=== PATIENT | male | born 1945 | race Caucasian/White ===

== ENCOUNTER 2020-01-31 00:28 | Emergency (ER) | payer OTHER ==
[~2020-01-31] VITALS: Ht 182.9 cm; Wt 115.9 kg
[~2020-01-31 00:28] MED LIST: BENAZEPRIL PO; CARV-39 PO; CEFD300C37 PO; DOXEPIN PO; DOXY100C2 PO; OXYC5CAP2 PO; SPIR25TA5 PO
--- NOTE | 2020-01-31 00:32 | NUR ---
74/M. Arrived via EMS. Constipation x6 days. Taking laxative at home. No success. Pt taking percocets at home for toe that needs amputated. Pt has been taking percocets for 15 years. Has had constipation in the past. Given a "pill" last time and it helped him have a BM. Complaints of lower abdominal pain. VS stable.
[2020-01-31] MEDS ORDERED: METHYLNALTREXONE 12 MG/0.6 ML SYR SQ ONE (00:48)
[2020-01-31 01:20] LABS: BASOPHILS # (AUTO) 0.11 x10^3/uL (0-0.1); BASOPHILS % (AUTO) 1 % (0-1); EOSINOPHILS # (AUTO) 0.18 x10^3/uL (0-0.4); EOSINOPHILS % (AUTO) 1 % (1-7); LYMPHOCYTES # (AUTO) 2.24 x10^3/uL (1-3.4); LYMPHOCYTES % (AUTO) 15 % (22-44); MD NO; MEAN CORPUSCULAR HEMOGLOBIN 32.2 pg (27.5-34.5); MEAN CORPUSCULAR HGB CONC 32.9 g/dL (33.2-36.2); MEAN PLATELET VOLUME 6.7 fL (7.4-10.4); MONOCYTES % (AUTO) 5 % (2-9); NEUTROPHILS # (AUTO) 11.62 x10^3/uL (1.8-6.8); NEUTROPHILS % (AUTO) 78 % (42-75); PLATELET COUNT 287 x10^3/uL (130-400); RED BLOOD COUNT 4.14 x10^6/uL (4.38-5.82); RED CELL DISTRIBUTION WIDTH 13.8 % (9.4-14.8)
[2020-01-31] MEDS: METHYLNALTREXONE 12 MG/0.6 ML SYR SQ ONE ×2 (01:22→01:24)
[2020-01-31 01:30] LABS: ALANINE AMINOTRANSFERASE 15 U/L (12-78); ALBUMIN 3.4 g/dL (3.4-5.0); ANION GAP 7 mmol/L (5-15); CHLORIDE 105 mmol/L (98-107); CREATININE 1.56 mg/dL (0.7-1.3)
[2020-01-31 01:32] LABS: ALKALINE PHOSPHATASE 101 U/L (45-117); BILIRUBIN,TOTAL 0.3 mg/dL (0.2-1.0); TOTAL PROTEIN 7.4 g/dL (6.4-8.2)
[2020-01-31] MEDS ORDERED: POLYETHYLENE GLYCOL 17 GM PACKET ONE (02:00)
[2020-01-31] MEDS ORDERED: POLYETHYLENE GLYCOL 17 GM PACKET NG ONE (02:00)
[2020-01-31] MEDS ORDERED: PINK LADY ENEMA 490 ML BOTTLE PR ONE (03:00)
[2020-01-31] MEDS ORDERED: ONDANSETRON ODT 4 MG ONE (03:52)
[2020-01-31 03:56] VITALS: BP 100/52
--- NOTE | 2020-01-31 03:59 | NUR ---
TASK RN: pt assisted from bedside commode to bed after having liquid bowel movement, pt reports nausea, provider aware, pt medicated per mar. pt appears pale to this rn after transfer to [facility] from commode. pt NAD, FCS mild SOB per baseline. WCTM.
[2020-01-31] MEDS ORDERED: ONDANSETRON ODT 4 MG PO ONE (04:00)
--- NOTE | 2020-01-31 04:15 | NUR ---
Pt complaining of inability to urinate and wanting to be catheterized. Wanting to discuss with MD. RN bladder scanned pt, urine amt <30mL. MD notified.
--- NOTE | 2020-01-31 05:25 | NUR ---
Pt D/C'd around 0500. RN gave pt time to have another BM. Pt ambulatory, but requesting a wheelchair at discharge. Taxi vouchure given to pt to ensure ride home.
[2020-02-01] MEDS ORDERED: OXYC-302 PO (17:27)
== END 2020-01-31 05:28 | disposition home or self-care (01) ==
LOC: ED 01:32
DX: K59.00 Constipation, unspecified (principal); R10.84 Generalized abdominal pain; I10 Essential (primary) hypertension
CPT/HCPCS: 36415; 74022; 80053; 83690; 85025; 96372; 99283; Q0162

== ENCOUNTER 2020-02-01 14:19 | Inpatient (IN) | payer OTHER ==
[~2020-02-01] VITALS: Ht 182.9 cm; Wt 125.5 kg
--- NOTE | 2020-02-01 14:25 | NUR ---
BIB [facility] FOR EVALUATION OF R SECOND TOE WOUND. ONSET ONE WEEK AGO. EMS CALLED BY HOME HEALTH RN. HX OF TOE AMPUTATION BUT DENIES DM, PVD, OR HX OF MRSA. OPEN SUPERFICIAL WOUND TO R SECOND TOE; ERYTHEMA AND DECREASED DISTAL CAP REFILL. DENIES FEVER/N/V/ NEW INJURY/TRAUMA. BP/SPO2 MONITORING IN PLACE.
[2020-02-01] MEDS ORDERED: CEFAZOLIN PMX 1GM/50ML 50 ML IV ONE (15:00)
[2020-02-01] MEDS ORDERED: CEFAZOLIN PMX 1GM/50ML 50 ML ONE (15:00)
[2020-02-01] MEDS ORDERED: SODIUM CHLORIDE FLUSH 10ML SYR IVF ONE (15:00)
--- NOTE | 2020-02-01 15:04 | NUR ---
ABX INITIATED. NO BC PER ERP.
[2020-02-01 15:25] LABS: HCT (SEDRATE) 39.6 % (39.2-51.8)
[2020-02-01 15:33] LABS: MEAN CORPUSCULAR HEMOGLOBIN 32.4 pg (27.5-34.5); MEAN PLATELET VOLUME 6.7 fL (7.4-10.4); PLATELET COUNT 348 x10^3/uL (130-400); RED BLOOD COUNT 4.01 x10^6/uL (4.38-5.82); RED CELL DISTRIBUTION WIDTH 13.9 % (9.4-14.8)
[2020-02-01 15:35] LABS: ALBUMIN 3.6 g/dL (3.4-5.0); ANION GAP 4 mmol/L (5-15); CALCIUM 8.7 mg/dL (8.5-10.1); CHLORIDE 100 mmol/L (98-107)
[2020-02-01 15:36] LABS: MD YES
--- NOTE | 2020-02-01 16:04 | NUR ---
ABX FINISHED. NO S/S OF ABX RXN. POC IS ADMIT. PT AWARE AND DEMONSTRATES UNDERSTANDING. PT INCONTINENT OF URINE. PT CLEANED, CLEAN SHEETS PLACED. CLEAN HOSPITAL GOWN. ALL BELONGINGS IN PT BELONGINGS BAG AND LABELED. AWAITING ADMIT
[2020-02-01 16:50] LABS: BAND#(MANUAL) 0.17 x10^3/uL; BANDS%(MANUAL) 1 % (0-7); LYMPH#(MANUAL) 2.21 x10^3/uL (1-3.4); LYMPHS% (MANUAL) 13 % (22-44); MONOS#(MANUAL) 1.02 x10^3/uL (0.3-2.7); MONOS% (MANUAL) 6 % (2-9); SEGS% (MANUAL) 80 % (42-75)
[2020-02-01 16:51] LABS: <PLATELET ESTIMATE> ADEQUATE; <PLT MORPHOLOGY> NORMAL PLT MORPH; <RBC MORPHOLOGY> NORMAL
[2020-02-01] MEDS ORDERED: SODIUM CHLORIDE FLUSH 10ML SYR IVF PRN (17:00)
--- NOTE | 2020-02-01 17:26 | NUR ---
PT TO RESTROOM VIA WHEELCHAIR. TRANSPORTED SELF FROM [facility] TO WHEELCHAIR WO DIFFICULTY
[2020-02-01] MEDS ORDERED: OXYC-302 PO (17:27)
--- NOTE | 2020-02-01 17:53 | NUR ---
PATIENT HAS BEEN DELINED BY [facility]IST.
--- NOTE | 2020-02-01 17:55 | NUR ---
REPORT TO ROSY LOGAN. PT PREPARED FOR TRANSPORT
[2020-02-01] MEDS ORDERED: ACETAMINOPHEN 325 MG TABLET PO PRN (18:00)
[2020-02-01] MEDS ORDERED: LABETALOL 5MG/ML, 20ML IVPush PRN (18:00)
[2020-02-01] MEDS ORDERED: ONDANSETRON 2MG/ML, 2ML IVPush PRN (18:00)
[2020-02-01] MEDS ORDERED: VANCOMYCIN PER PHARMACY MC PRN (18:00)
[2020-02-01] MEDS ORDERED: POLYETHYLENE GLYCOL 17 GM PACKET PO PRN (18:00)
[2020-02-01] MEDS ORDERED: HEPARIN 5,000 UNITS/ML, 1ML SQ SCH (18:00)
[2020-02-01] MEDS ORDERED: ONDANSETRON ODT 4 MG PO PRN (18:00)
[2020-02-01 19:19] VITALS: BP 115/70
[2020-02-01] MEDS ORDERED: PHARMACOKINETIC CONSULTATION MC ONE (19:30)
[2020-02-01] MEDS ORDERED: PHARMACOKINETIC MONITORING MC PRN (19:30)
[2020-02-01] MEDS ORDERED: [UNRECOGNIZED DRUG - REMARK] MC SCH (19:30)
[2020-02-01] MEDS ORDERED: VANCOMYCIN 2,200 MG in SODIUM CHLORIDE 0.9% 500 ML IV ONE (19:45)
[2020-02-01] MEDS: OXYcodone/APAP 5/325MG TABLET PO PRN (20:43)
[2020-02-01] MEDS: SODIUM CHLORIDE 0.9% 1,000 ML IV SCH (20:44)
[2020-02-01] MEDS: HEPARIN 5,000 UNITS/ML, 1ML SQ SCH ×2 (20:44→23:29)
[2020-02-01] MEDS ORDERED: DOXEPIN PO SCH (21:00)
[2020-02-01] MEDS: DOXEPIN 100 MG CAPSULE PO SCH (21:40)
[2020-02-01] MEDS: CEFTRIAXONE PMX 2GM/50ML 50 ML IV SCH (22:13)
[2020-02-02 00:20] VITALS: BP 110/69
[2020-02-02] MEDS: OXYcodone/APAP 5/325MG TABLET PO PRN ×3 (04:13→21:14)
[2020-02-02] MEDS: DOXEPIN 100 MG CAPSULE PO SCH ×4 (04:29→21:14)
[2020-02-02 05:34] LABS: BASOPHILS # (AUTO) 0.03 x10^3/uL (0-0.1); BASOPHILS % (AUTO) 0 % (0-1); EOSINOPHILS # (AUTO) 0.15 x10^3/uL (0-0.4); EOSINOPHILS % (AUTO) 1 % (1-7); LYMPHOCYTES # (AUTO) 2.61 x10^3/uL (1-3.4); LYMPHOCYTES % (AUTO) 22 % (22-44); MD NO; MEAN CORPUSCULAR HEMOGLOBIN 32.3 pg (27.5-34.5); MEAN CORPUSCULAR HGB CONC 33.4 g/dL (33.2-36.2); MEAN PLATELET VOLUME 7.3 fL (7.4-10.4); MONOCYTES # (AUTO) 0.76 x10^3/uL (0.2-0.8); MONOCYTES % (AUTO) 7 % (2-9); NEUTROPHILS # (AUTO) 8.29 x10^3/uL (1.8-6.8); NEUTROPHILS % (AUTO) 70 % (42-75); PLATELET COUNT 215 x10^3/uL (130-400); RED BLOOD COUNT 3.69 x10^6/uL (4.38-5.82); RED CELL DISTRIBUTION WIDTH 13.9 % (9.4-14.8)
[2020-02-02 05:41] LABS: CHLORIDE 107 mmol/L (98-107)
[2020-02-02 05:45] LABS: ANION GAP 9 mmol/L (5-15); CALCIUM 8.5 mg/dL (8.5-10.1); CREATININE 2.02 mg/dL (0.7-1.3)
[2020-02-02] MEDS: SODIUM CHLORIDE 0.9% 1,000 ML IV SCH ×2 (07:30→15:30)
[2020-02-02 07:35] VITALS: BP 122/68
[2020-02-02] MEDS: SENNA/DOCUSATE TABLET PO SCH (09:00)
[2020-02-02] MEDS: CARVEDILOL 25 MG TABLET PO SCH (09:00)
[2020-02-02] MEDS: HEPARIN 5,000 UNITS/ML, 1ML SQ SCH ×2 (12:30→21:14)
[2020-02-02] MEDS ORDERED: ONDANSETRON 2MG/ML, 2ML IVPush PRN (13:00)
[2020-02-02] MEDS ORDERED: ACETAMINOPHEN 325 MG TABLET PO PRN (13:00)
[2020-02-02] MEDS ORDERED: FENTANYL PF 100 MCG/2ML IV PRN (13:00)
[2020-02-02] MEDS ORDERED: morphine SULFATE 10 MG/ML, 1ML IVPush PRN (13:00)
[2020-02-02] MEDS ORDERED: HYDROmorphone 1 MG/ML, 1ML INJ IVPush PRN (13:00)
[2020-02-02] MEDS ORDERED: MEPERIDINE/PF 25MG/0.5ML IVPush PRN (13:00)
[2020-02-02] MEDS ORDERED: BUPIVACAINE/PF 0.5% ONE (13:00)
[2020-02-02] MEDS ORDERED: LABETALOL 5MG/ML, 20ML IV PRN (13:00)
[2020-02-02] MEDS ORDERED: OXYcodone 5 MG/5 ML ORAL.SOL UDC PO PRN (13:00)
[2020-02-02] MEDS ORDERED: hydrALAzine 20 MG/ML, 1ML IV PRN (13:00)
[2020-02-02] MEDS ORDERED: FENTANYL PF 250 MCG/5ML ONE (13:03)
[2020-02-02] MEDS ORDERED: PROPOFOL 10 MG/ML, 20ML ONE (13:04)
[2020-02-02 15:00] VITALS: BP 113/76
[2020-02-02 19:58] VITALS: BP 123/78
[2020-02-02] MEDS: CEFTRIAXONE PMX 2GM/50ML 50 ML IV SCH (22:08)
[2020-02-03 00:16] VITALS: BP 116/71
[2020-02-03] MEDS ORDERED: VANCOMYCIN 2,200 MG in SODIUM CHLORIDE 0.9% 500 ML IV ONE (01:30)
[2020-02-03] MEDS: OXYcodone/APAP 5/325MG TABLET PO PRN ×3 (02:45→18:27)
[2020-02-03] MEDS: SODIUM CHLORIDE 0.9% 1,000 ML IV SCH ×3 (02:45→20:44)
[2020-02-03] MEDS: HEPARIN 5,000 UNITS/ML, 1ML SQ SCH ×3 (04:30→20:44)
[2020-02-03] MEDS: DOXEPIN 100 MG CAPSULE PO SCH ×4 (05:59→22:32)
[2020-02-03 06:23] LABS: ANION GAP 5 mmol/L (5-15); CALCIUM 8.4 mg/dL (8.5-10.1); CHLORIDE 110 mmol/L (98-107); CREATININE 1.51 mg/dL (0.7-1.3)
[2020-02-03 06:31] LABS: BASOPHILS # (AUTO) 0.11 x10^3/uL (0-0.1); BASOPHILS % (AUTO) 1 % (0-1); EOSINOPHILS % (AUTO) 2 % (1-7); LYMPHOCYTES % (AUTO) 19 % (22-44); MD NO; MEAN CORPUSCULAR HEMOGLOBIN 32.6 pg (27.5-34.5); MEAN CORPUSCULAR HGB CONC 33.3 g/dL (33.2-36.2); MONOCYTES # (AUTO) 0.52 x10^3/uL (0.2-0.8); MONOCYTES % (AUTO) 6 % (2-9); NEUTROPHILS # (AUTO) 6.18 x10^3/uL (1.8-6.8); NEUTROPHILS % (AUTO) 72 % (42-75); PLATELET COUNT 176 x10^3/uL (130-400); RED BLOOD COUNT 3.59 x10^6/uL (4.38-5.82); RED CELL DISTRIBUTION WIDTH 13.9 % (9.4-14.8)
[2020-02-03 07:09] VITALS: BP 128/69
[2020-02-03] MEDS: SENNA/DOCUSATE TABLET PO SCH (10:00)
[2020-02-03] MEDS: CARVEDILOL 25 MG TABLET PO SCH (10:00)
[2020-02-03 13:12] VITALS: BP 113/65
[2020-02-03 19:21] VITALS: BP 111/63
[2020-02-03] MEDS: CEFTRIAXONE PMX 2GM/50ML 50 ML IV SCH (22:33)
[2020-02-04] VITALS: BP 136/76
[2020-02-04] MEDS: HEPARIN 5,000 UNITS/ML, 1ML SQ SCH ×3 (04:30→20:23)
[2020-02-04 04:45] LABS: BASOPHILS # (AUTO) 0.04 x10^3/uL (0-0.1); BASOPHILS % (AUTO) 1 % (0-1); EOSINOPHILS # (AUTO) 0.23 x10^3/uL (0-0.4); EOSINOPHILS % (AUTO) 3 % (1-7); LYMPHOCYTES # (AUTO) 1.61 x10^3/uL (1-3.4); LYMPHOCYTES % (AUTO) 23 % (22-44); MD NO; MEAN CORPUSCULAR HEMOGLOBIN 32.6 pg (27.5-34.5); MEAN CORPUSCULAR HGB CONC 33.6 g/dL (33.2-36.2); MONOCYTES # (AUTO) 0.49 x10^3/uL (0.2-0.8); MONOCYTES % (AUTO) 7 % (2-9); NEUTROPHILS # (AUTO) 4.58 x10^3/uL (1.8-6.8); NEUTROPHILS % (AUTO) 66 % (42-75); PLATELET COUNT 177 x10^3/uL (130-400); RED BLOOD COUNT 3.46 x10^6/uL (4.38-5.82); RED CELL DISTRIBUTION WIDTH 13.8 % (9.4-14.8)
[2020-02-04] MEDS: OXYcodone/APAP 5/325MG TABLET PO PRN ×4 (04:54→20:23)
[2020-02-04] MEDS: SODIUM CHLORIDE 0.9% 1,000 ML IV SCH ×2 (04:56→20:00)
[2020-02-04 04:59] LABS: ANION GAP 4 mmol/L (5-15); CALCIUM 8.3 mg/dL (8.5-10.1); CHLORIDE 111 mmol/L (98-107); CREATININE 1.24 mg/dL (0.7-1.3)
[2020-02-04] MEDS: DOXEPIN 100 MG CAPSULE PO SCH ×4 (05:34→20:22)
[2020-02-04] MEDS: VANCOMYCIN 2,200 MG in SODIUM CHLORIDE 0.9% 500 ML IV SCH (05:35)
[2020-02-04 07:57] VITALS: BP 136/73
[2020-02-04] MEDS: SENNA/DOCUSATE TABLET PO SCH (08:30)
[2020-02-04] MEDS: CARVEDILOL 25 MG TABLET PO SCH (08:30)
[2020-02-04] MEDS ORDERED: BUPIVACAINE/PF 0.5% ONE (12:59)
[2020-02-04] MEDS ORDERED: CHLORHEXIDINE 15 ML UDC MM ONE (13:00)
[2020-02-04] MEDS ORDERED: FENTANYL PF 100 MCG/2ML ONE (13:14)
[2020-02-04] MEDS ORDERED: ONDANSETRON 2MG/ML, 2ML IVPush PRN (13:30)
[2020-02-04] MEDS ORDERED: OXYcodone 5 MG/5 ML ORAL.SOL UDC PO PRN (13:30)
[2020-02-04] MEDS ORDERED: METOPROLOL 1 MG/ML, 5ML IV PRN (13:30)
[2020-02-04] MEDS ORDERED: FENTANYL PF 100 MCG/2ML IV PRN (13:30)
[2020-02-04] MEDS ORDERED: HYDROmorphone 1 MG/ML, 1ML INJ IVPush PRN (13:30)
[2020-02-04] MEDS ORDERED: PROMETHAZINE 25 MG/ML, 1ML IVPush PRN (13:30)
[2020-02-04] MEDS ORDERED: PROMETHAZINE 25 MG SUPP PR PRN (13:30)
[2020-02-04] MEDS ORDERED: ACETAMINOPHEN 325 MG TABLET PO PRN (13:30)
[2020-02-04] MEDS ORDERED: LABETALOL 5MG/ML, 20ML IV PRN (13:30)
[2020-02-04] MEDS ORDERED: hydrALAzine 20 MG/ML, 1ML IV PRN (13:30)
[2020-02-04] MEDS ORDERED: ONDANSETRON 2MG/ML, 2ML ONE (14:02)
[2020-02-04] MEDS ORDERED: CEFAZOLIN 1,000 MG ONE (14:02)
[2020-02-04] MEDS ORDERED: DEXAMETHASONE 4 MG/ML, 1ML ONE (14:02)
[2020-02-04] MEDS ORDERED: PROPOFOL 10 MG/ML, 20ML ONE (14:02)
[2020-02-04 15:10] VITALS: BP 161/81
[2020-02-04 18:54] VITALS: BP 153/73
[2020-02-04] MEDS: CEFTRIAXONE PMX 2GM/50ML 50 ML IV SCH (21:26)
[2020-02-05 00:30] VITALS: BP 133/73
[2020-02-05] MEDS: OXYcodone/APAP 5/325MG TABLET PO PRN ×2 (01:18→08:36)
[2020-02-05] MEDS: SODIUM CHLORIDE 0.9% 1,000 ML IV SCH ×2 (04:37→11:29)
[2020-02-05] MEDS: HEPARIN 5,000 UNITS/ML, 1ML SQ SCH ×2 (04:37→12:30)
[2020-02-05 04:57] LABS: BASOPHILS # (AUTO) 0.03 x10^3/uL (0-0.1); BASOPHILS % (AUTO) 1 % (0-1); EOSINOPHILS # (AUTO) 0.25 x10^3/uL (0-0.4); EOSINOPHILS % (AUTO) 4 % (1-7); LYMPHOCYTES # (AUTO) 1.76 x10^3/uL (1-3.4); LYMPHOCYTES % (AUTO) 25 % (22-44); MD NO; MEAN CORPUSCULAR HEMOGLOBIN 32.8 pg (27.5-34.5); MEAN CORPUSCULAR HGB CONC 33.5 g/dL (33.2-36.2); MONOCYTES # (AUTO) 0.47 x10^3/uL (0.2-0.8); MONOCYTES % (AUTO) 7 % (2-9); NEUTROPHILS # (AUTO) 4.46 x10^3/uL (1.8-6.8); NEUTROPHILS % (AUTO) 64 % (42-75); PLATELET COUNT 175 x10^3/uL (130-400); RED BLOOD COUNT 3.45 x10^6/uL (4.38-5.82); RED CELL DISTRIBUTION WIDTH 13.5 % (9.4-14.8)
[2020-02-05 05:02] LABS: ALBUMIN 2.8 g/dL (3.4-5.0); ANION GAP 5 mmol/L (5-15); CALCIUM 8.3 mg/dL (8.5-10.1); CHLORIDE 110 mmol/L (98-107); CREATININE 1.14 mg/dL (0.7-1.3)
[2020-02-05 05:08] LABS: PREALBUMIN 16.6 mg/dL (20.0-40.0)
[2020-02-05] MEDS: VANCOMYCIN 2,200 MG in SODIUM CHLORIDE 0.9% 500 ML IV SCH (05:28)
[2020-02-05] MEDS: DOXEPIN 100 MG CAPSULE PO SCH ×2 (05:31→10:27)
[2020-02-05 06:25] VITALS: BP 128/75
[2020-02-05] MEDS: CARVEDILOL 25 MG TABLET PO SCH (08:31)
[2020-02-05] MEDS: SENNA/DOCUSATE TABLET PO SCH (08:32)
[2020-02-05] MEDS ORDERED: DOXY100C15 PO (12:43)
[2020-02-05 13:30] VITALS: BP 118/71
== END 2020-02-05 13:56 | disposition home health service (06) | DRG 503 ==
LOC: ED 17:00 → 4NE 18:55 → ED 20:52 → 4NE 20:52 → DCLOUNGE 02-05 13:47
PROVIDERS: ADMIT Family Medicine; ATTEND Family Medicine
PROC: 0Y6R0Z0 Detachment at Right 2nd Toe, Complete, Open Approach (ICD-10-PCS; principal; 2020-02-04 14:45)
DX: M86.171 Other acute osteomyelitis, right ankle and foot (principal); N17.0 Acute kidney failure with tubular necrosis; E87.1 Hypo-osmolality and hyponatremia; D72.829 Elevated white blood cell count, unspecified; E87.5 Hyperkalemia; F32.9 Major depressive disorder, single episode, unspecified; G62.9 Polyneuropathy, unspecified; G89.29 Other chronic pain; I10 Essential (primary) hypertension; K59.00 Constipation, unspecified; Z82.49 Family history of ischemic heart disease and other diseases of the circulatory system; Z89.411 Acquired absence of right great toe; Z03.818 Encounter for observation for suspected exposure to other biological agents ruled out
CPT/HCPCS: 36415; 80048; 80202; 82040; 84134; 85025; 85651; 86140; 87040; 87070; 87075; 87077; 87176; 87186; 87205; 87635; 88305; 88311; 93005; 96365; G0378; J0690; J0696; J1100; J1644; J2405; J2704; J3010; J3370; J7030; J7040

== ENCOUNTER 2020-02-14 22:56 | Emergency (ER) | payer OTHER ==
[~2020-02-14] VITALS: Ht 182.9 cm; Wt 131.6 kg
[~2020-02-14 22:56] MED LIST changes: +DOXY100C15 PO; +OXYC-302 PO
--- NOTE | 2020-02-14 23:01 | NUR ---
PT BIB EMS FOR WEAKNESS. PER FAMILY, PT REPORTEDLY TOOK TOO MANY OF HIS NARCOTIC PAIN MEDICATIONS TONIGHT. PT DENIES ETOH. UPON ARRIVAL TO [facility] ED, PT DROWSY AND MAKING INCOHERENT SENTENCES. UPON ARRIVAL TO [facility] ED, PT ATTACHED TO ALL VS AND CARDIAC MONITORS. VSS AT THIS TIME. LAB AND WATER PROJECT ENGINEER AT FOR EKG. PT CHANGED INTO GOWN. PT PLACED ON END TIDAL CAPNOGRAPHY TO MONITOR C02. PT VSS. DR TEE AT BS FOR PT HISTORY AND ASSESSMENT. PT EDUCATED ON ER PROCESS BUT IS UNABLE TO VERBALIZE UNDERSTANDING AT THIS TIME. CALL LIGHT IS WITHIN REACH.
[2020-02-14 23:31] LABS: BASOPHILS % (AUTO) 1 % (0-1); EOSINOPHILS % (AUTO) 2 % (1-7); LYMPHOCYTES % (AUTO) 19 % (22-44); MEAN CORPUSCULAR HEMOGLOBIN 32.7 pg (27.5-34.5); MEAN CORPUSCULAR HGB CONC 33.3 g/dL (33.2-36.2); MEAN PLATELET VOLUME 7.1 fL (7.4-10.4); MONOCYTES % (AUTO) 7 % (2-9); NEUTROPHILS % (AUTO) 72 % (42-75); PLATELET COUNT 215 x10^3/uL (130-400); RED BLOOD COUNT 3.69 x10^6/uL (4.38-5.82); RED CELL DISTRIBUTION WIDTH 13.8 % (9.4-14.8)
[2020-02-14 23:32] LABS: MD NO
[2020-02-14 23:43] LABS: ALBUMIN 3.1 g/dL (3.4-5.0); ANION GAP 5 mmol/L (5-15); CALCIUM 8.2 mg/dL (8.5-10.1); CHLORIDE 109 mmol/L (98-107)
[2020-02-14 23:45] LABS: ALANINE AMINOTRANSFERASE 15 U/L (12-78); ALKALINE PHOSPHATASE 88 U/L (45-117); BILIRUBIN,TOTAL 0.3 mg/dL (0.2-1.0); CREATININE 1.36 mg/dL (0.7-1.3); TOTAL PROTEIN 6.6 g/dL (6.4-8.2)
[2020-02-14 23:46] LABS: SALICYLATE LEVEL < 1.7 mg/dL (2.8-20.0)
--- NOTE | 2020-02-15 00:34 | NUR ---
PT VSS AND UPDATED IN EMR.
[2020-02-15 02:02] VITALS: BP 113/69
--- NOTE | 2020-02-15 02:02 | NUR ---
PT D/C WITH D/C SUMMARY. ALL QUESTIONS ANSWERED. PT PROVIDED HOSPITAL SOCKS AND TAXI VOUCHER FOR SAFE DISCHARGE HOME. PT DENIES ANY OTHER NEEDS PERTAINING TO THIS VISIT AND AMBULATES TO REGISTRATION DESK WITH SLOW AND STEADY GAIT FOR D/C HOME.
== END 2020-02-15 02:05 | disposition home or self-care (01) ==
LOC: ED 23:23
DX: G92 Toxic encephalopathy (principal); R41.82 Altered mental status, unspecified; G89.29 Other chronic pain; M54.5 Low back pain; R53.1 Weakness; I10 Essential (primary) hypertension; R94.31 Abnormal electrocardiogram [ECG] [EKG]
CPT/HCPCS: 36415; 70450; 71045; 80053; 80307; 83605; 85025; 93005; 99284

== ENCOUNTER 2020-02-17 09:14 | Emergency (ER) | payer OTHER ==
[~2020-02-17] VITALS: Ht 182.9 cm; Wt 125.0 kg
--- NOTE | 2020-02-17 09:53 | NUR ---
PT ARRIVED CO UNABLE TO URINATE AND CONSTIPATION DE [place] PLACED AND 900 ML KATELYN COLLECTED ON INITIAL INSERTION PT REPORTS RELIEF PA TO THE BS ON ARRIVAL
[2020-02-17] MEDS ORDERED: SODIUM CHLORIDE FLUSH 10ML SYR IVF ONE (10:00)
[2020-02-17 10:15] LABS: BASOPHILS % (AUTO) 1 % (0-1); EOSINOPHILS % (AUTO) 2 % (1-7); LYMPHOCYTES % (AUTO) 17 % (22-44); MEAN CORPUSCULAR HEMOGLOBIN 32.3 pg (27.5-34.5); MEAN CORPUSCULAR HGB CONC 33.1 g/dL (33.2-36.2); MEAN PLATELET VOLUME 7.1 fL (7.4-10.4); MONOCYTES % (AUTO) 6 % (2-9); NEUTROPHILS % (AUTO) 74 % (42-75); PLATELET COUNT 187 x10^3/uL (130-400); RED BLOOD COUNT 4.19 x10^6/uL (4.38-5.82)
[2020-02-17 10:19] LABS: MD NO
[2020-02-17 10:23] LABS: CHLORIDE 109 mmol/L (98-107)
[2020-02-17 10:27] LABS: ALBUMIN 3.4 g/dL (3.4-5.0); ANION GAP 7 mmol/L (5-15); CREATININE 1.46 mg/dL (0.7-1.3)
[2020-02-17 11:05] LABS: MICROSCOPIC NOT IND
[2020-02-17 11:34] VITALS: BP 165/74
--- NOTE | 2020-02-17 14:23 | NUR ---
BREAK RN- LEG BAG APPLIED, DISCHARGE INSTRUCTION REVIEWED.
== END 2020-02-17 14:25 | disposition home or self-care (01) ==
LOC: ED 11:07
DX: N40.1 Benign prostatic hyperplasia with lower urinary tract symptoms (principal); K59.00 Constipation, unspecified; R33.8 Other retention of urine; I10 Essential (primary) hypertension
CPT/HCPCS: 36415; 51702; 74022; 80048; 81003; 82040; 85025; 99283; 99284

== ENCOUNTER 2020-02-18 10:24 | Inpatient (IN) | payer OTHER ==
[~2020-02-18] VITALS: Ht 182.9 cm; Wt 113.6 kg
--- NOTE | 2020-02-18 10:37 | NUR ---
PT BIB EMS FOR [facility] DUE TO WEAKNESS. PT HAS CALLED [phone] TIMES IN THE PAST WEEK FOR FALLING. PT IS VERY WEAK AND UNSTEADY, HE HAD A HARD TIME TAKING OFF HIS OWN SHIRT. PT REPORTS BODY ACHES. PT IS RESTING IN [facility]. CONNECTED TO MONITORING EQUIPMENT. BED RAILS UP.
[2020-02-18] MEDS ORDERED: MORPHINE SULFATE 4 MG/ML, 1ML ONE (10:54)
[2020-02-18] MEDS ORDERED: SODIUM CHLORIDE 0.9% 1,000 ML IV ONE (11:00)
[2020-02-18] MEDS ORDERED: SODIUM CHLORIDE FLUSH 10ML SYR IVF ONE (11:00)
[2020-02-18] MEDS: MORPHINE SULFATE 4 MG/ML, 1ML IVPush PRN ×2 (11:10→14:03)
[2020-02-18 11:14] LABS: BASOPHILS % (AUTO) 1 % (0-1); EOSINOPHILS % (AUTO) 1 % (1-7); LYMPHOCYTES % (AUTO) 17 % (22-44); MEAN CORPUSCULAR HEMOGLOBIN 32.9 pg (27.5-34.5); MEAN CORPUSCULAR HGB CONC 33.4 g/dL (33.2-36.2); MEAN PLATELET VOLUME 7.2 fL (7.4-10.4); MONOCYTES % (AUTO) 7 % (2-9); NEUTROPHILS % (AUTO) 75 % (42-75); PLATELET COUNT 208 x10^3/uL (130-400); RED BLOOD COUNT 3.86 x10^6/uL (4.38-5.82); RED CELL DISTRIBUTION WIDTH 13.7 % (9.4-14.8)
[2020-02-18 11:16] LABS: MD NO
[2020-02-18 11:20] LABS: MICROSCOPIC INDICATED
[2020-02-18 11:22] LABS: HCT (SEDRATE) 37.9 % (39.2-51.8)
[2020-02-18 11:25] LABS: ALANINE AMINOTRANSFERASE 14 U/L (12-78); ALBUMIN 3.5 g/dL (3.4-5.0); ANION GAP 5 mmol/L (5-15); CHLORIDE 109 mmol/L (98-107); CREATININE 1.72 mg/dL (0.7-1.3)
[2020-02-18 11:27] LABS: ALKALINE PHOSPHATASE 96 U/L (45-117); BILIRUBIN,TOTAL 0.5 mg/dL (0.2-1.0); TOTAL PROTEIN 7.1 g/dL (6.4-8.2)
[2020-02-18 13:45] VITALS: BP 123/78
[2020-02-18 14:58] VITALS: BP 123/78
[2020-02-18] MEDS ORDERED: BISACODYL 10 MG SUPP PR PRN (15:30)
[2020-02-18] MEDS ORDERED: ENALAPRILAT 1.25 MG/ML, 2ML IVPush PRN (15:30)
[2020-02-18] MEDS ORDERED: ONDANSETRON ODT 4 MG PO PRN (15:30)
[2020-02-18] MEDS ORDERED: ONDANSETRON 2MG/ML, 2ML IVPush PRN (15:30)
[2020-02-18] MEDS ORDERED: LABETALOL 5MG/ML, 20ML IVPush PRN (15:30)
[2020-02-18] MEDS ORDERED: POLYETHYLENE GLYCOL 17 GM PACKET PO PRN (15:30)
[2020-02-18] MEDS: HEPARIN 5,000 UNITS/ML, 1ML SQ SCH (16:33)
[2020-02-18] MEDS: DOXEPIN 100 MG CAPSULE PO SCH ×2 (16:33→22:49)
[2020-02-18] MEDS ORDERED: MAGNESIUM CITRATE 300ML ORAL SOL PO ONE (17:00)
[2020-02-18] MEDS: OXYcodone IR 5MG TABLET PO PRN (18:36)
[2020-02-18 20:42] VITALS: BP 110/65
[2020-02-19] MEDS: HEPARIN 5,000 UNITS/ML, 1ML SQ SCH ×3 (00:16→16:48)
[2020-02-19 01:19] VITALS: BP 139/80
[2020-02-19] MEDS: DOXEPIN 100 MG CAPSULE PO SCH ×3 (04:54→21:11)
[2020-02-19] MEDS: OXYcodone IR 5MG TABLET PO PRN ×2 (04:55→17:15)
[2020-02-19 06:03] LABS: BASOPHILS % (AUTO) 1 % (0-1); EOSINOPHILS % (AUTO) 3 % (1-7); LYMPHOCYTES % (AUTO) 25 % (22-44); MEAN CORPUSCULAR HEMOGLOBIN 32.5 pg (27.5-34.5); MEAN PLATELET VOLUME 7.2 fL (7.4-10.4); MONOCYTES % (AUTO) 7 % (2-9); NEUTROPHILS % (AUTO) 65 % (42-75); PLATELET COUNT 191 x10^3/uL (130-400); RED BLOOD COUNT 3.82 x10^6/uL (4.38-5.82)
[2020-02-19 06:10] LABS: ANION GAP 3 mmol/L (5-15); CALCIUM 8.6 mg/dL (8.5-10.1); CHLORIDE 107 mmol/L (98-107); CREATININE 1.34 mg/dL (0.7-1.3)
[2020-02-19 06:15] LABS: MD NO
[2020-02-19 07:11] VITALS: BP 109/68
[2020-02-19] MEDS ORDERED: OXYcodone IR 5MG TABLET PO PRN (09:00)
[2020-02-19] MEDS ORDERED: MAGNESIUM CITRATE 300ML ORAL SOL PO ONE (09:00)
[2020-02-19] MEDS: SENNA/DOCUSATE TABLET PO SCH (09:16)
[2020-02-19] MEDS: SPIRONOLACTONE 25 MG TABLET PO SCH (09:17)
[2020-02-19] MEDS: BENAZEPRIL 20 MG TABLET PO SCH (09:17)
[2020-02-19] MEDS: CARVEDILOL 25 MG TABLET PO SCH (09:17)
[2020-02-19 12:34] VITALS: BP 103/62
[2020-02-19] MEDS ORDERED: POLYETHYLENE GLYCOL 17 GM PACKET PO SCH (13:00)
[2020-02-19] MEDS ORDERED: GLYCERIN ADULT SUPP PR PRN (13:00)
[2020-02-19] MEDS: GLYCERIN ADULT SUPP PR SCH (13:30)
[2020-02-19] MEDS ORDERED: POLYETHYLENE GLYCOL 17 GM PACKET PO ONE (13:30)
[2020-02-19] MEDS ORDERED: CEFTRIAXONE PMX 2GM/50ML 50 ML IVPB SCH (14:30)
[2020-02-19 19:44] VITALS: BP 98/61
[2020-02-20] MEDS: HEPARIN 5,000 UNITS/ML, 1ML SQ SCH ×3 (00:14→16:32)
[2020-02-20 00:24] VITALS: BP 139/67
[2020-02-20] MEDS: OXYcodone IR 5MG TABLET PO PRN ×2 (04:57→12:00)
[2020-02-20 05:44] LABS: ANION GAP 5 mmol/L (5-15); CALCIUM 8.7 mg/dL (8.5-10.1); CHLORIDE 106 mmol/L (98-107)
[2020-02-20 05:50] LABS: BASOPHILS % (AUTO) 1 % (0-1); EOSINOPHILS % (AUTO) 3 % (1-7); LYMPHOCYTES % (AUTO) 27 % (22-44); MEAN CORPUSCULAR HEMOGLOBIN 32.8 pg (27.5-34.5); MEAN CORPUSCULAR HGB CONC 33.1 g/dL (33.2-36.2); MEAN PLATELET VOLUME 7.4 fL (7.4-10.4); MONOCYTES % (AUTO) 8 % (2-9); NEUTROPHILS % (AUTO) 62 % (42-75); PLATELET COUNT 176 x10^3/uL (130-400)
[2020-02-20 06:00] LABS: MD NO
[2020-02-20 08:42] VITALS: BP 113/69
[2020-02-20] MEDS: SENNA/DOCUSATE TABLET PO SCH (08:54)
[2020-02-20] MEDS: BENAZEPRIL 20 MG TABLET PO SCH (08:55)
[2020-02-20] MEDS: SPIRONOLACTONE 25 MG TABLET PO SCH (08:55)
[2020-02-20] MEDS: MAGNESIUM CITRATE 300ML ORAL SOL PO SCH (08:55)
[2020-02-20] MEDS: DOXEPIN 100 MG CAPSULE PO SCH ×3 (08:55→20:51)
[2020-02-20] MEDS: CARVEDILOL 25 MG TABLET PO SCH (08:55)
[2020-02-20] MEDS: POLYETHYLENE GLYCOL 17 GM PACKET PO SCH (10:43)
[2020-02-20] MEDS: GLYCERIN ADULT SUPP PR SCH (11:50)
[2020-02-20 12:54] VITALS: BP 102/59
[2020-02-20 19:08] VITALS: BP 116/80
[2020-02-21] MEDS: HEPARIN 5,000 UNITS/ML, 1ML SQ SCH ×3 (00:34→17:00)
[2020-02-21 00:35] VITALS: BP 124/71
[2020-02-21] MEDS: OXYcodone IR 5MG TABLET PO PRN ×4 (00:41→21:04)
[2020-02-21] MEDS: POLYETHYLENE GLYCOL 17 GM PACKET PO SCH (07:07)
[2020-02-21 07:21] VITALS: BP 127/52
[2020-02-21] MEDS: MAGNESIUM CITRATE 300ML ORAL SOL PO SCH ×2 (08:18→09:00)
[2020-02-21] MEDS: SPIRONOLACTONE 25 MG TABLET PO SCH (08:18)
[2020-02-21] MEDS: SENNA/DOCUSATE TABLET PO SCH (08:18)
[2020-02-21] MEDS: CARVEDILOL 25 MG TABLET PO SCH (08:18)
[2020-02-21] MEDS: DOXEPIN 100 MG CAPSULE PO SCH ×3 (08:19→21:03)
[2020-02-21] MEDS: BENAZEPRIL 20 MG TABLET PO SCH (08:19)
[2020-02-21] MEDS: GLYCERIN ADULT SUPP PR SCH (09:13)
[2020-02-21 12:17] VITALS: BP 110/74
[2020-02-21 18:49] VITALS: BP 133/76
[2020-02-22] MEDS: HEPARIN 5,000 UNITS/ML, 1ML SQ SCH ×3 (00:18→17:14)
[2020-02-22 00:20] VITALS: BP 154/79
[2020-02-22] MEDS: OXYcodone IR 5MG TABLET PO PRN ×2 (03:44→17:14)
[2020-02-22 07:48] VITALS: BP 134/72
[2020-02-22] MEDS: SENNA/DOCUSATE TABLET PO SCH (09:00)
[2020-02-22] MEDS: DOXEPIN 100 MG CAPSULE PO SCH ×3 (09:00→21:07)
[2020-02-22] MEDS: MAGNESIUM CITRATE 300ML ORAL SOL PO SCH (09:00)
[2020-02-22] MEDS: CARVEDILOL 25 MG TABLET PO SCH (09:00)
[2020-02-22] MEDS: SPIRONOLACTONE 25 MG TABLET PO SCH (09:00)
[2020-02-22] MEDS: GLYCERIN ADULT SUPP PR SCH (09:00)
[2020-02-22] MEDS: POLYETHYLENE GLYCOL 17 GM PACKET PO SCH (09:00)
[2020-02-22] MEDS: BENAZEPRIL 20 MG TABLET PO SCH (09:00)
[2020-02-22 09:15] LABS: BASOPHILS % (AUTO) 0 % (0-1); EOSINOPHILS % (AUTO) 0 % (1-7); LYMPHOCYTES % (AUTO) 7 % (22-44); MEAN CORPUSCULAR HEMOGLOBIN 32.8 pg (27.5-34.5); MEAN CORPUSCULAR HGB CONC 33.8 g/dL (33.2-36.2); MEAN PLATELET VOLUME 7.3 fL (7.4-10.4); MONOCYTES % (AUTO) 4 % (2-9); NEUTROPHILS % (AUTO) 89 % (42-75); PLATELET COUNT 219 x10^3/uL (130-400); RED BLOOD COUNT 4.39 x10^6/uL (4.38-5.82); RED CELL DISTRIBUTION WIDTH 14.3 % (9.4-14.8)
[2020-02-22 09:22] LABS: ANION GAP 10 mmol/L (5-15); CALCIUM 9.1 mg/dL (8.5-10.1); CHLORIDE 109 mmol/L (98-107)
[2020-02-22 10:01] LABS: MD SCAN
[2020-02-22] MEDS: FAMOTIDINE 20 MG/2 ML IVPush SCH (10:20)
[2020-02-22 12:12] VITALS: BP 163/90
[2020-02-22 13:12] VITALS: BP 126/73
[2020-02-22] MEDS: SODIUM CHLORIDE 0.9% 1,000 ML IV SCH (15:52)
[2020-02-22 15:56] LABS: MICROSCOPIC NOT IND
[2020-02-22 18:36] VITALS: BP 131/76
[2020-02-23 00:42] VITALS: BP 121/79
[2020-02-23] MEDS: HEPARIN 5,000 UNITS/ML, 1ML SQ SCH ×3 (01:19→17:11)
[2020-02-23] MEDS: SODIUM CHLORIDE 0.9% 1,000 ML IV SCH (05:10)
[2020-02-23 05:32] LABS: BASOPHILS % (AUTO) 0 % (0-1); EOSINOPHILS % (AUTO) 1 % (1-7); LYMPHOCYTES % (AUTO) 20 % (22-44); MEAN CORPUSCULAR HEMOGLOBIN 32.9 pg (27.5-34.5); MEAN CORPUSCULAR HGB CONC 33.2 g/dL (33.2-36.2); MEAN PLATELET VOLUME 7.5 fL (7.4-10.4); MONOCYTES % (AUTO) 8 % (2-9); NEUTROPHILS % (AUTO) 70 % (42-75); PLATELET COUNT 187 x10^3/uL (130-400); RED BLOOD COUNT 3.59 x10^6/uL (4.38-5.82)
[2020-02-23 05:44] LABS: ANION GAP 5 mmol/L (5-15); CALCIUM 8.1 mg/dL (8.5-10.1); CHLORIDE 108 mmol/L (98-107); CREATININE 1.08 mg/dL (0.7-1.3)
[2020-02-23 05:47] LABS: MD NO
[2020-02-23 07:28] VITALS: BP 158/75
[2020-02-23] MEDS: FAMOTIDINE 20 MG/2 ML IVPush SCH (09:00)
[2020-02-23] MEDS: SPIRONOLACTONE 25 MG TABLET PO SCH (09:15)
[2020-02-23] MEDS: SENNA/DOCUSATE TABLET PO SCH (09:16)
[2020-02-23] MEDS: POLYETHYLENE GLYCOL 17 GM PACKET PO SCH (09:16)
[2020-02-23] MEDS: CARVEDILOL 25 MG TABLET PO SCH (09:16)
[2020-02-23] MEDS: BENAZEPRIL 20 MG TABLET PO SCH (09:19)
[2020-02-23] MEDS: DOXEPIN 100 MG CAPSULE PO SCH ×3 (09:19→21:08)
[2020-02-23] MEDS: OXYcodone IR 5MG TABLET PO PRN ×2 (09:19→18:45)
[2020-02-23 13:10] VITALS: BP 148/77
[2020-02-23] MEDS: TAMSULOSIN 0.4 MG CAP.ER.24H PO SCH (15:28)
[2020-02-23 19:27] VITALS: BP 131/72
[2020-02-24 01:50] VITALS: BP 102/65
[2020-02-24] MEDS: HEPARIN 5,000 UNITS/ML, 1ML SQ SCH ×3 (02:06→17:04)
[2020-02-24 06:04] LABS: BASOPHILS % (AUTO) 1 % (0-1); EOSINOPHILS % (AUTO) 2 % (1-7); LYMPHOCYTES % (AUTO) 19 % (22-44); MEAN CORPUSCULAR HEMOGLOBIN 32.8 pg (27.5-34.5); MEAN CORPUSCULAR HGB CONC 33.4 g/dL (33.2-36.2); MEAN PLATELET VOLUME 7.3 fL (7.4-10.4); MONOCYTES % (AUTO) 8 % (2-9); NEUTROPHILS % (AUTO) 71 % (42-75); PLATELET COUNT 180 x10^3/uL (130-400); RED BLOOD COUNT 3.75 x10^6/uL (4.38-5.82); RED CELL DISTRIBUTION WIDTH 14.1 % (9.4-14.8)
[2020-02-24 06:15] LABS: ANION GAP 8 mmol/L (5-15); CALCIUM 8.6 mg/dL (8.5-10.1); CHLORIDE 106 mmol/L (98-107)
[2020-02-24 06:29] LABS: MD NO
[2020-02-24 07:36] VITALS: BP 116/73
[2020-02-24] MEDS: BENAZEPRIL 20 MG TABLET PO SCH (09:31)
[2020-02-24] MEDS: TAMSULOSIN 0.4 MG CAP.ER.24H PO SCH (09:31)
[2020-02-24] MEDS: OXYcodone IR 5MG TABLET PO PRN ×2 (09:31→17:03)
[2020-02-24] MEDS: DOXEPIN 100 MG CAPSULE PO SCH ×3 (09:32→20:23)
[2020-02-24] MEDS: FAMOTIDINE 20 MG TABLET PO SCH (09:32)
[2020-02-24] MEDS: SPIRONOLACTONE 25 MG TABLET PO SCH (09:32)
[2020-02-24] MEDS: SENNA/DOCUSATE TABLET PO SCH (09:32)
[2020-02-24] MEDS: POLYETHYLENE GLYCOL 17 GM PACKET PO SCH (09:32)
[2020-02-24] MEDS: CARVEDILOL 25 MG TABLET PO SCH (10:11)
[2020-02-24] MEDS: ACETAMINOPHEN 325 MG TABLET PO PRN (13:50)
[2020-02-24 15:24] VITALS: BP 108/66
[2020-02-24 19:34] VITALS: BP 118/73
[2020-02-25] MEDS: HEPARIN 5,000 UNITS/ML, 1ML SQ SCH ×3 (01:55→18:18)
[2020-02-25 02:11] VITALS: BP 122/69
[2020-02-25 08:20] VITALS: BP 136/74
[2020-02-25] MEDS: OXYcodone IR 5MG TABLET PO PRN ×2 (09:50→18:17)
[2020-02-25] MEDS: SPIRONOLACTONE 25 MG TABLET PO SCH (09:51)
[2020-02-25] MEDS: POLYETHYLENE GLYCOL 17 GM PACKET PO SCH (09:51)
[2020-02-25] MEDS: TAMSULOSIN 0.4 MG CAP.ER.24H PO SCH (09:51)
[2020-02-25] MEDS: DOXEPIN 100 MG CAPSULE PO SCH ×3 (09:51→20:29)
[2020-02-25] MEDS: CARVEDILOL 25 MG TABLET PO SCH (09:51)
[2020-02-25] MEDS: BENAZEPRIL 20 MG TABLET PO SCH (09:52)
[2020-02-25] MEDS: FAMOTIDINE 20 MG TABLET PO SCH (09:52)
[2020-02-25] MEDS: SENNA/DOCUSATE TABLET PO SCH (09:52)
[2020-02-25 12:03] VITALS: BP 144/78
[2020-02-25 19:52] VITALS: BP 137/77
[2020-02-26 01:38] VITALS: BP 133/82
[2020-02-26] MEDS: HEPARIN 5,000 UNITS/ML, 1ML SQ SCH ×3 (02:13→18:07)
[2020-02-26] MEDS ORDERED: MAALOX/HYOSCYAMINE/LIDOCAINE 45 ML BTL PO ONE (06:00)
[2020-02-26 06:39] VITALS: BP 124/70
[2020-02-26] MEDS: FAMOTIDINE 20 MG TABLET PO SCH ×2 (09:01→20:08)
[2020-02-26] MEDS: OXYcodone IR 5MG TABLET PO PRN ×2 (09:01→16:19)
[2020-02-26] MEDS: POLYETHYLENE GLYCOL 17 GM PACKET PO SCH (09:01)
[2020-02-26] MEDS: DOXEPIN 100 MG CAPSULE PO SCH ×3 (09:01→20:08)
[2020-02-26] MEDS: BENAZEPRIL 20 MG TABLET PO SCH (09:02)
[2020-02-26] MEDS: CARVEDILOL 25 MG TABLET PO SCH (09:02)
[2020-02-26] MEDS: TAMSULOSIN 0.4 MG CAP.ER.24H PO SCH (09:02)
[2020-02-26] MEDS: SENNA/DOCUSATE TABLET PO SCH (09:02)
[2020-02-26 12:19] VITALS: BP 131/75
[2020-02-26] MEDS: ACETAMINOPHEN 325 MG TABLET PO PRN (12:47)
[2020-02-26 19:06] VITALS: BP 112/71
[2020-02-27 01:41] VITALS: BP 116/68
[2020-02-27] MEDS: OXYcodone IR 5MG TABLET PO PRN ×2 (01:57→15:40)
[2020-02-27] MEDS: HEPARIN 5,000 UNITS/ML, 1ML SQ SCH ×2 (01:57→11:44)
[2020-02-27 07:58] VITALS: BP 109/67
[2020-02-27] MEDS ORDERED: PANTOPRAZOLE 20MG TABLET PO ONE (08:00)
[2020-02-27] MEDS: BENAZEPRIL 20 MG TABLET PO SCH (09:23)
[2020-02-27] MEDS: DOXEPIN 100 MG CAPSULE PO SCH (09:23)
[2020-02-27] MEDS: TAMSULOSIN 0.4 MG CAP.ER.24H PO SCH (09:23)
[2020-02-27] MEDS: POLYETHYLENE GLYCOL 17 GM PACKET PO SCH (09:23)
[2020-02-27] MEDS: CARVEDILOL 25 MG TABLET PO SCH (09:23)
[2020-02-27] MEDS: SENNA/DOCUSATE TABLET PO SCH (09:24)
[2020-02-27] MEDS: FAMOTIDINE 20 MG TABLET PO SCH (09:24)
[2020-02-27 12:50] VITALS: BP 130/75
[2020-02-27] MEDS ORDERED: Senna/Docusate PO (13:28)
[2020-02-27] MEDS ORDERED: PANT20TA4 PO (13:28)
[2020-02-27] MEDS ORDERED: POLY17PO5 PO (13:28)
[2020-02-27] MEDS ORDERED: OXYC-302 PO (13:28)
[2020-02-27] MEDS ORDERED: TAMS-11 PO (13:28)
[2020-02-28] MEDS ORDERED: PANTOPRAZOLE 20MG TABLET PO SCH (06:00)
== END 2020-02-27 16:37 | DRG 641 ==
LOC: ED 11:02 → INTOOBSV 11:28 → EDIP 11:28 → OBSVTOIN 11:28 → 3N 12:33
PROVIDERS: ADMIT Family Medicine; ATTEND Family Medicine
PROC: 0T9B30Z Drainage of Bladder with Drainage Device, Percutaneous Approach (ICD-10-PCS; principal; 2020-02-18)
DX: R62.7 Adult failure to thrive (principal); N39.0 Urinary tract infection, site not specified; J98.11 Atelectasis; K92.0 Hematemesis; G62.9 Polyneuropathy, unspecified; E04.1 Nontoxic single thyroid nodule; G89.29 Other chronic pain; D72.829 Elevated white blood cell count, unspecified; G47.00 Insomnia, unspecified; I10 Essential (primary) hypertension; R13.10 Dysphagia, unspecified; N40.1 Benign prostatic hyperplasia with lower urinary tract symptoms; K21.00 Gastro-esophageal reflux disease with esophagitis, without bleeding; K59.03 Drug induced constipation; R33.8 Other retention of urine; S80.219A Abrasion, unspecified knee, initial encounter; W18.39XA Other fall on same level, initial encounter; T40.605A Adverse effect of unspecified narcotics, initial encounter; Z86.73 Personal history of transient ischemic attack (TIA), and cerebral infarction without residual deficits; Z79.891 Long term (current) use of opiate analgesic; Y93.89 Activity, other specified; Y92.89 Other specified places as the place of occurrence of the external cause; Y99.8 Other external cause status; Z79.899 Other long term (current) drug therapy; F32.9 Major depressive disorder, single episode, unspecified
CPT/HCPCS: 36415; 71045; 72128; 72131; 76536; 80048; 80053; 81001; 81003; 84443; 85025; 85651; 87086; 99285; G0378; J0696; J1644; J2405; Q0162; 92523-GN; J2270; J7030